=== PATIENT | female | born 1995 | race American Indian/Alaskan Native ===

== ENCOUNTER 2022-03-16 19:59 | Emergency (ER) | payer OTHER ==
[2022-03-16 21:17] VITALS: BP 118/72
--- NOTE | 2022-03-16 22:02 | Emergency Department Report ---
ED General Adult HPI - General Chief complaint: Extremity Injury, Lower Stated complaint: NUMBNESS/BRUISING Time Seen by Provider: 03/16/22 21:58 Source: patient Mode of arrival: Ambulatory Limitations: No Limitations - History of Present Illness Initial comments: 27-year-old man female is emerged from complaining a few day history of right lower extremity numbness tingling and occasional pain in she reports no traumatic events to her knowledge. No fever, chills, sweats. No Homans' sign -: Gradual Location: head Radiation: non-radiation Quality: dull Improves with: none Worsens with: none Associated Symptoms: denies other symptoms Treatments Prior to Arrival: none - Related Data Allergies Allergy/AdvReac Type Severity Reaction Status Date / Time No Known Allergies Allergy Unverified 03/16/22 21:17 ED Review of Systems ROS: Stated complaint: NUMBNESS/BRUISING Other details as noted in HPI Comment: All other systems reviewed and negative ED Physical Exam - General Limitations: No Limitations General appearance: alert, in no apparent distress - Head Head exam: Present: atraumatic, normocephalic - Eye Eye exam: Present: normal appearance, PERRL - ENT ENT exam: Present: normal exam, mucous membranes moist - Neck Neck exam: Present: normal inspection - Respiratory Respiratory exam: Present: normal lung sounds bilaterally. Absent: respiratory distress, wheezes, rales, rhonchi - Cardiovascular Cardiovascular Exam: Present: regular rate, normal rhythm. Absent: systolic murmur, diastolic murmur, rubs, gallop - GI/Abdominal GI/Abdominal exam: Present: soft, normal bowel sounds - Extremities Exam Extremities exam: Present: normal inspection, tenderness, normal capillary refill, pedal edema, calf tenderness - Back Exam Back exam: Present: normal inspection. Absent: CVA tenderness (R), CVA tenderness (L), paraspinal tenderness, vertebral tenderness - Neurological Exam Neurological exam: Present: alert, oriented X3, CN II-XII intact, normal gait - Psychiatric Psychiatric exam: Present: normal affect, normal mood - Skin Skin exam: Present: warm, dry, intact, normal color. Absent: rash, cyanosis, diaphoretic ED Course Vital Signs 03/16/22 21:11 Temperature 99.1 F Pulse Rate 81 Respiratory 18 Rate Blood Pressure 118/72 [Right] O2 Sat by Pulse 100 Oximetry ED Medical Decision Making - Lab Data Result diagrams: 03/16/22 22:28 03/16/22 22:28 - Radiology Data Radiology results: report reviewed [facility] [address] [place] [address] Vascular Lab Report Signed Patient: JAYJAY SHAH MR#: [id number] : 1995 Acct:[id number] Age/Sex: 27 / F ADM Date: 03/16/22 Loc: ED Attending Dr: Ordering Physician: JORGE JOSHUA Date of Service: 03/16/22 Procedure(s): VL venous duplex LE RT Accession Number(s): [id number] cc: JORGE JOSHUA DUPLEX DOPPLER LOWER EXTREMITY VEINS, RIGHT INDICATION / CLINICAL INFORMATION: swelling and numbness. TECHNIQUE: Duplex doppler imaging was performed through the veins of the right lower extremity using venous compression and other maneuvers. COMPARISON: None available. FINDINGS: RIGHT COMMON FEMORAL VEIN: Negative. RIGHT FEMORAL VEIN: Negative. RIGHT POPLITEAL VEIN: Negative. RIGHT CALF VEINS: Negative. ADDITIONAL FINDINGS: None. IMPRESSION: 1. No sonographic evidence for DVT in the right lower extremity. Signer Name: Miguel Lozada II, MD Signed: 03/17/2022 12:13 AM Workstation Name: [id number] Transcribed By: ANAID Dictated By: MIGUEL LOZADA II, MD Electronically Authenticated By: MIGUEL LOZADA II, MD Signed Date/Time: 03/17/2212 DD/ TD/TT: Critical care attestation.: If time is entered above; I have spent that time in minutes in the direct care of this critically ill patient, excluding procedure time. ED Disposition Clinical Impression: Lower extremity neuropathy, Edema of right lower extremity Disposition: 01 HOME / SELF CARE / HOMELESS Is pt being admited?: No Does the pt Need Aspirin: No Condition: Stable Instructions: Saphenous Nerve Entrapment, Peripheral Neuropathy, Pinched Nerve, Neuropathic Pain Additional Instructions: Seen evaluate emergency department today for right lower extremity numbness tingling pain help with the labs that were taken showed no acute processes no emergent findings and ultrasound had no evidence of any DVT or other emergent conditions present. Please sure to follow-up with your primary care provider for further evaluation of this issue when you use your use [id number] Tylenol and Motrin as needed for any discomfort and the rash
[2022-03-16 23:01] LABS: Basophils # (Auto) 0.2 K/mm3 (0.0-0.1); Basophils % (Auto) 2.3 % (0.0-1.8); Eosinophils # (Auto) 0.2 K/mm3 (0.0-0.4); Eosinophils % (Auto) 3.1 % (0.0-4.3); Hematocrit 40.1 % (30.3-42.9); Hemoglobin 13.7 gm/dl (10.1-14.3); Lymphocytes # (Auto) 3.3 K/mm3 (1.2-5.4); Lymphocytes % (Auto) 48.3 % (13.4-35.0); Mean Corpuscular HGB Conc 34 % (30-34); Mean Corpuscular Volume 88 fl (79-97); Monocytes # (Auto) 0.7 K/mm3 (0.0-0.8); Monocytes % (Auto) 10.5 % (0.0-7.3); Platelet Count 303 K/mm3 (140-440); Red Blood Count 4.55 M/mm3 (3.65-5.03); Red Cell Distribution Width 13.9 % (13.2-15.2)
[2022-03-16 23:11] LABS: Blood Urea Nitrogen 12 mg/dL (7-17); Calcium 9.9 mg/dL (8.4-10.2); Hemolysis Index 6; INR 0.92 (0.87-1.13)
[2022-03-16 23:15] LABS: BUN/Creatinine Ratio 17
--- NOTE | 2022-03-17 00:18 | Vascular Lab Report ---
DUPLEX DOPPLER LOWER EXTREMITY VEINS, RIGHT INDICATION / CLINICAL INFORMATION: swelling and numbness. TECHNIQUE: Duplex doppler imaging was performed through the veins of the right lower extremity using venous compression and other maneuvers. COMPARISON: None available. FINDINGS: RIGHT COMMON FEMORAL VEIN: Negative. RIGHT FEMORAL VEIN: Negative. RIGHT POPLITEAL VEIN: Negative. RIGHT CALF VEINS: Negative. ADDITIONAL FINDINGS: None. IMPRESSION: 1. No sonographic evidence for DVT in the right lower extremity. Signer Name: Brian Lozada II, MD Signed: 03/17/2022 12:13 AM Workstation Name: [id number]
== END 2022-03-17 03:11 | disposition home or self-care (01) ==
LOC: ED 19:59
DX: G57.90 Unspecified mononeuropathy of unspecified lower limb (principal); M25.48 Effusion, other site
CPT/HCPCS: 36415; 80048; 85025; 85610; 99284